=== PATIENT | female | born 1970 | race Caucasian/White ===

== ENCOUNTER 2018-11-22 11:39 | Emergency (ER) | payer OTHER ==
[~2018-11-22] VITALS: Ht 154.9 cm; Wt 90.7 kg
[2018-11-22] MEDS ORDERED: TORADOL 10 MG T10 MG PO (11:56)
[2018-11-22] MEDS ORDERED: PRILOSEC OTC20 MG PO (11:56)
[2018-11-22] MEDS ORDERED: CYMBALTA60 MG PO (11:56)
[2018-11-22] MEDS ORDERED: NEURONTIN 400400 M1 PO (11:56)
[2018-11-22] MEDS ORDERED: KEFLEX500 M1 PO (12:49)
[2018-11-22 13:44] VITALS: BP 104/48
== END 2018-11-22 13:46 | disposition home or self-care (01) ==
LOC: M.ERS 11:39
DX: H66.91 Otitis media, unspecified, right ear (principal); R05 Cough; Z88.5 Allergy status to narcotic agent